=== PATIENT | female | born 1985 | race Hispanic/Latino ===

== ENCOUNTER 2019-01-25 14:36 | Outpatient (CLI) | payer OTHER ==
--- NOTE | 2019-01-25 16:02 | ULT ---
EXAM: Pelvic ultrasound HISTORY: Menorrhagia COMPARISON: None TECHNIQUE: Multiple grayscale and color Doppler images were obtained in a transabdominal pelvic ultra sound. Spectral analysis of the Doppler waveforms of the ovaries were performed. FINDINGS: CERVIX: No evidence of nabothian cysts. UTERUS: Normal in size without focal abnormality. Retroverted. ENDOMETRIAL STRIPE: 18 mm. No free fluid is seen in the pelvis. RIGHT OVARY: Normal flow without focal mass. LEFT OVARY: Normal flow without focal mass. IMPRESSION: Nonspecific thickening of the endometrial stripe. This could be secondary to endometrial hyperplasia or an endometrial mass.
== END 2019-01-25 14:37 | disposition home or self-care (01) ==
LOC: BICULT 14:36
PROVIDERS: ATTEND Family Medicine
DX: N92.1 Excessive and frequent menstruation with irregular cycle (principal); N85.00 Endometrial hyperplasia, unspecified
CPT/HCPCS: 76856; 93976